=== PATIENT | female | born 1930 | race Caucasian/White ===

== ENCOUNTER → 2016-10-26 | Outpatient (CLI) | payer MEDICARE, OTHER ==
[~2016-10-26] VITALS: Ht 162.6 cm; Wt 65.8 kg
[~2016-10-26] MED LIST: ASPIR-LOW81 MG PO; BACITRACIN3.5 GM TOP; CATAPRES 0.1MG0.1 MG PO; DOCUSATE SODIU1 EACH PO; ENTRESTO PO; LASIX40 MG PO; LIPITOR TAB 1010 MG PO; LOVENOX SY30 MG/0.3 SQ; NEURONTIN 100100 MG PO; NITROFURANTOIN100 MG PO; NITROGLYCERIN PO; PLAVIX 75 MG TA75 MG PO; SOTALOL80 MG PO; TRAMADOL HCL50 MG PO
== END ==
LOC: OPSV 11:50
DX: K21.9 Gastro-esophageal reflux disease without esophagitis (principal); M81.0 Age-related osteoporosis without current pathological fracture
CPT/HCPCS: 96365; J3489; J7050

== ENCOUNTER 2017-01-28 20:25 | Emergency (ER) | payer MEDICARE, OTHER ==
[2017-01-28 21:12] LABS: HEMOGLOBIN 12.9 gm/dl (12.3-15.3); RED BLOOD COUNT 4.23 M/UL (4.00-5.10); WHITE BLOOD COUNT 6.9 K/UL (4.5-11.0)
[2017-01-28 22:01] LABS: BUN/CREATININE RATIO 17 (0-10)
== END 2017-01-28 21:46 ==
LOC: ER1 20:25
PROVIDERS: Emergency Medicine
DX: S01.01XA Laceration without foreign body of scalp, initial encounter (principal); S00.83XA Contusion of other part of head, initial encounter; S40.022A Contusion of left upper arm, initial encounter; S40.021A Contusion of right upper arm, initial encounter; S80.211A Abrasion, right knee, initial encounter; S80.812A Abrasion, left lower leg, initial encounter; I10 Essential (primary) hypertension; Z95.0 Presence of cardiac pacemaker; W18.39XA Other fall on same level, initial encounter; Y92.009 Unspecified place in unspecified non-institutional (private) residence as the place of occurrence of the external cause
CPT/HCPCS: 12001; 36415; 71010; 80053; 82550; 82553; 83874; 84484; 85025; 93005; 96374; 99284; J0690; J7050

== ENCOUNTER 2017-02-04 22:02 | Inpatient (IN) | payer MEDICARE, OTHER ==
[~2017-02-04] VITALS: Ht 162.6 cm; Wt 70.0 kg
[2017-02-04 22:22] LABS: HEMOGLOBIN 11.3 gm/dl (12.3-15.3); RED BLOOD COUNT 3.64 M/UL (4.00-5.10); WHITE BLOOD COUNT 10.5 K/UL (4.5-11.0)
[2017-02-04 22:34] LABS: BUN/CREATININE RATIO 10 (0-10)
[2017-02-05] MEDS ORDERED: LIPITOR TAB 1010 MG PO (01:51)
[2017-02-05] MEDS ORDERED: DOCUSATE SODIU1 EACH PO ×2 (01:51→02:55)
[2017-02-05] MEDS ORDERED: CATAPRES 0.1MG0.1 MG PO (01:51)
[2017-02-05] MEDS ORDERED: PLAVIX 75 MG TA75 MG PO (01:52)
[2017-02-05] MEDS ORDERED: SOTALOL80 MG PO (01:56)
[2017-02-05] MEDS ORDERED: TRAMADOL HCL50 MG PO (01:57)
[2017-02-05] MEDS ORDERED: LOVENOX SY30 MG/0.3 SQ (01:57)
[2017-02-05] MEDS ORDERED: BACITRACIN3.5 GM TOP (02:53)
[2017-02-05] MEDS ORDERED: NEURONTIN 100100 MG PO (02:55)
[2017-02-05] MEDS ORDERED: NITROGLYCERIN PO (02:57)
[2017-02-05] MEDS ORDERED: NITROFURANTOIN100 MG PO (02:57)
[2017-02-05 06:24] LABS: WHITE BLOOD COUNT 9.3 K/UL (4.5-11.0)
[2017-02-05 06:36] LABS: RED BLOOD COUNT 3.25 M/UL (4.00-5.10)
[2017-02-05 06:44] LABS: BUN/CREATININE RATIO 14 (0-10)
[2017-02-07] MEDS ORDERED: ENTRESTO PO (01:56)
[2017-02-07 04:39] LABS: HEMOGLOBIN 10.2 gm/dl (12.3-15.3); RED BLOOD COUNT 3.33 M/UL (4.00-5.10)
[2017-02-07 04:44] LABS: WHITE BLOOD COUNT 6.8 K/UL (4.5-11.0)
[2017-02-07 04:59] LABS: BUN/CREATININE RATIO 20 (0-10)
[2017-02-07] MEDS ORDERED: ASPIR-LOW81 MG PO (15:01)
[2017-02-07] MEDS ORDERED: LASIX40 MG PO (15:06)
== END 2017-02-07 19:41 | disposition home or self-care (01) | DRG 291 ==
LOC: ER1 22:02 → ZEROF 23:29 → CCU 23:29 → M/S 02-06 22:51
PROVIDERS: Emergency Medicine; Internal Medicine; ADMIT Internal Medicine
DX: I50.23 Acute on chronic systolic (congestive) heart failure (principal); J96.01 Acute respiratory failure with hypoxia; I48.92 Unspecified atrial flutter; I31.3 Pericardial effusion (noninflammatory); I48.91 Unspecified atrial fibrillation; I10 Essential (primary) hypertension; I45.10 Unspecified right bundle-branch block; I25.10 Atherosclerotic heart disease of native coronary artery without angina pectoris; E78.5 Hyperlipidemia, unspecified; I25.5 Ischemic cardiomyopathy; D64.9 Anemia, unspecified; E87.6 Hypokalemia; K21.9 Gastro-esophageal reflux disease without esophagitis; I95.9 Hypotension, unspecified; Z95.810 Presence of automatic (implantable) cardiac defibrillator; Z91.81 History of falling; Z90.710 Acquired absence of both cervix and uterus; Z98.61 Coronary angioplasty status
CPT/HCPCS: ECHO; 36415; 36600; 71010; 71250; 80048; 80053; 82550; 82553; 82803; 83605; 83690; 83880; 84484; 85025; 85027; 85610; 85730; 87040; 93005; 93306; 93308; 94660; 96365; 96366; 96375; 96376; 99291; J0282; J1650; J1940; J1956; J2270

== ENCOUNTER 2021-11-16 16:07 | Emergency (ER) | payer OTHER ==
[~2021-11-16 16:07] MED LIST changes: +ATORVASTATIN CA20 MG PO; +BETAPACE 80MG T80 MG PO; +CALCIUM600 MG PO; +CEFPODOXIME PR200 MG PO; +CRANBERRY CONC1 EACH PO; +ELAVIL 25 MG TA25 MG PO; +ELIQUIS2.5 MG PO; +ENTRESTO 49 MG1 EACH PO; -ENTRESTO PO; +LOSARTAN POTAS100 MG PO; +ULTRAM50 MG PO; +VITAMIN D 40400 UNIT PO
[2021-11-16 16:25] LABS: HEMOGLOBIN 13.2 gm/dl (12.3-15.3); RED BLOOD COUNT 4.25 M/UL (4.00-5.10); WHITE BLOOD COUNT 5.5 K/UL (4.5-11.0)
[2021-11-16 16:55] LABS: BUN/CREATININE RATIO 16 (0-10)
[2021-11-16] MEDS ORDERED: ZYRTEC10 MG PO (21:16)
[2021-11-16] MEDS ORDERED: OMNICEF 300 MG300 MG PO (21:16)
== END 2021-11-16 21:20 | disposition home or self-care (01) ==
LOC: ER1 16:07
PROVIDERS: Student in an Organized Health Care Education/Training Program
DX: N39.0 Urinary tract infection, site not specified (principal); E78.5 Hyperlipidemia, unspecified; I48.91 Unspecified atrial fibrillation; I10 Essential (primary) hypertension; Z95.0 Presence of cardiac pacemaker; Z79.01 Long term (current) use of anticoagulants; Z20.822 Contact with and (suspected) exposure to COVID-19
CPT/HCPCS: 70450; 71045; 80053; 81001; 82550; 82553; 84484; 85025; 93005; 99285; U0002

== ENCOUNTER → 2021-12-16 | Outpatient (CLI) | payer OTHER ==
[~2021-12-16] MED LIST changes: +ARTHRITIS PAIN650 M2 PO; +CALCIUM 600 +1 EA10 PO; +CLEOCIN HCL300 MG PO; +ENTRESTO 24 MG1 EACH PO; +HYDROCODON-ACE1 EAC4 PO; +KLONOPIN TAB 00.5 MG PO; +LEVOFLOXACIN500 MG PO; +NITRO-TIME9 MG PO; +OMNICEF 300 MG300 MG PO; +ZYRTEC10 MG PO
[2021-12-16 14:07] LABS: HEMOGLOBIN 13.5 gm/dl (12.3-15.3); RED BLOOD COUNT 4.28 M/UL (4.00-5.10); WHITE BLOOD COUNT 4.8 K/UL (4.5-11.0)
[2021-12-16 14:15] LABS: BUN/CREATININE RATIO 22 (0-10)
== END ==
LOC: ECHO 11-30 10:00
PROVIDERS: Internal Medicine Cardiovascular Disease
DX: I50.22 Chronic systolic (congestive) heart failure (principal); T82.110A Breakdown (mechanical) of cardiac electrode, initial encounter; I48.91 Unspecified atrial fibrillation; I25.5 Ischemic cardiomyopathy; I51.7 Cardiomegaly; I31.3 Pericardial effusion (noninflammatory); Z95.0 Presence of cardiac pacemaker
CPT/HCPCS: ECHO; 36415; 80048; 85025; 93306

== ENCOUNTER 2021-12-18 09:22 | Outpatient (CLI) | payer OTHER ==
[~2021-12-18] VITALS: Ht 162.6 cm; Wt 62.7 kg
[~2021-12-18 09:22] MED LIST changes: -ARTHRITIS PAIN650 M2 PO; -CALCIUM 600 +1 EA10 PO; -CLEOCIN HCL300 MG PO; -ENTRESTO 24 MG1 EACH PO; -HYDROCODON-ACE1 EAC4 PO; -KLONOPIN TAB 00.5 MG PO; -LEVOFLOXACIN500 MG PO; -NITRO-TIME9 MG PO
[2021-12-18] MEDS ORDERED: KLONOPIN TAB 00.5 MG PO (09:57)
[2021-12-18] MEDS ORDERED: NITRO-TIME9 MG PO (10:00)
[2021-12-18] MEDS ORDERED: ENTRESTO 24 MG1 EACH PO (10:01)
[2021-12-18] MEDS ORDERED: CALCIUM 600 +1 EA10 PO (10:01)
[2021-12-18] MEDS ORDERED: ARTHRITIS PAIN650 M2 PO (10:02)
[2021-12-18] MEDS ORDERED: LEVOFLOXACIN500 MG PO (15:27)
[2021-12-18] MEDS ORDERED: CLEOCIN HCL300 MG PO (15:27)
[2021-12-18] MEDS ORDERED: HYDROCODON-ACE1 EAC4 PO (15:27)
== END 2021-12-19 11:11 | disposition home or self-care (01) ==
LOC: CATH 09:22 → CDU 16:10 → PROG CARE 16:10 → CATH 12-19 11:11
DX: T82.110A Breakdown (mechanical) of cardiac electrode, initial encounter (principal); I11.0 Hypertensive heart disease with heart failure; I50.22 Chronic systolic (congestive) heart failure; I25.10 Atherosclerotic heart disease of native coronary artery without angina pectoris; I48.0 Paroxysmal atrial fibrillation; I25.5 Ischemic cardiomyopathy; K21.9 Gastro-esophageal reflux disease without esophagitis; E78.5 Hyperlipidemia, unspecified; I44.7 Left bundle-branch block, unspecified; Z79.01 Long term (current) use of anticoagulants; Z79.82 Long term (current) use of aspirin; Z79.899 Other long term (current) drug therapy; Z20.822 Contact with and (suspected) exposure to COVID-19
CPT/HCPCS: 33216; 71045; 75716; 93005; 93641; 99152; 99153; C1777; C1882; J1644; J2250; J3010; J3370; J7040; J7050; J7070; Q9965